=== PATIENT | female | born 1975 | race Caucasian/White ===

== ENCOUNTER 2020-11-08 10:02 | Day surgery (SDC) | payer OTHER ==
[~2020-11-08] VITALS: Ht 157.5 cm; Wt 64.3 kg
[2020-11-08 10:46] VITALS: BP 115/52; PULSE 82; TEMP 98
[2020-11-08 13:03] VITALS: BP 108/57; PULSE 91
--- NOTE | 2020-11-08 13:03 | NUR ---
Patient returns to room 5 per cart from surgery accompanied by Andrzej AUGUST and patient is awake and alert. Temp 97.8 and room air sats 98%. Foot of the cart and elevated and dressing clean and dry on the right foot. Post op shoe in place. IV fluids infusing. Siderails up x2 and call light in reach. Spouse in the room. Dr. Vickers in the room and talks with the patient and spouse.
[2020-11-08 13:18] VITALS: BP 108/57; PULSE 83
--- NOTE | 2020-11-08 13:18 | NUR ---
Room air sats 98%. Resting and is drinking water and eating muffin.
[2020-11-08 13:33] VITALS: BP 115/52; PULSE 87
--- NOTE | 2020-11-08 13:33 | NUR ---
Continues to rest and talks with spouse. Denies pain or nausea.
--- NOTE | 2020-11-08 13:35 | NUR ---
IV to INT. Assisted up to the bathroom and voids. States that the right foot remains numb. Dressing dry and intact. Post op shoe in place.
[2020-11-08] MEDS ORDERED: PERCOCET 325 MG1 TA2 PO (13:51)
--- NOTE | 2020-11-08 14:07 | NUR ---
Discharge instructions given and patient and spouse both verbalize understanding of home and follow up as directed by Dr. Vickers. Provided office number for questions and concerns.
--- NOTE | 2020-11-08 14:09 | NUR ---
Patient dismissed to home driven by spouse and taken to the front door per wheechair and assisted into vehicle by this RN with dismissal instructions in hand.
== END 2020-11-08 14:09 | disposition home or self-care (01) ==
LOC: SDCO 10:02
DX: H20.21 Lens-induced iridocyclitis, right eye (principal); M72.2 Plantar fascial fibromatosis; M19.90 Unspecified osteoarthritis, unspecified site; Z90.89 Acquired absence of other organs; Z79.899 Other long term (current) drug therapy
CPT/HCPCS: J0690; J1100; J2250; J2405; J2704; J3010; J3301; J7120